=== PATIENT | female | born 1990 | race African-American/Black ===

== ENCOUNTER 2018-07-08 20:34 | Emergency (ER) | payer MEDICAID ==
[~2018-07-08] VITALS: Ht 167.6 cm; Wt 53.1 kg
[2018-07-08 21:00] VITALS: BP 109/65
--- NOTE | 2018-07-08 21:22 | Emergency Room Report ---
History of Present Illness General Chief Complaint: Skin Rash/Abscess Source: Patient Present Illness HPI Patient is a 28-year-old female presented after increased facial itching and swelling. Patient reports having increased rash to her chest face and extremities. This began several days ago. Patient had some improvement with Benadryl. She denies any difficulty breathing. Patient reported having some initial itchiness to her face. She stated she had recently used a mask which may have irritated her face. She denies any other recent exposures.She reports having eaten some shrimp initially prior to the rash. Allergies: Coded Allergies: No Known Allergies (Unverified , 07/08/18) Patient History Past Medical History: see triage record Last Menstrual Period: yesterday Now: No Reviewed Nursing Documentation: PMH: Agreed; PSxH: Agreed Nursing Documentation-PMH Past Medical History: No Stated History Review of Systems All Other Systems: negative except mentioned in HPI Physical Exam Vital Signs Date Time Temp Pulse Resp B/P (MAP) Pulse Ox O2 Delivery O2 Flow Rate FiO2 07/08/18 20:49 99.1 77 16 109/65 99 General Appearance: well appearing, no apparent distress, alert, GCS 15 Head: normocephalic, atraumatic ENT: hearing grossly normal, normal voice Neck: full range of motion, supple Respiratory: no respiratory distress, speaking full sentences Musculoskeletal: no calf tenderness Neurologic: normal inspection, alert, oriented x3, responsive, normal gait Psychiatric: mood/affect normal Skin: warm/dry, other - generalized urticarial rash Medical Decision Making Diagnostic Impression: Primary Impression: Allergic reaction ER Course Patient presented for skin rash. Differential diagnosis included was not limited to Curtis-Darien syndrome, urticaria, erythema multiforme, contact dermatitis. Patient's benign exam and does not appear to require any further imaging or laboratory testing at this time. The patient given prescription for prednisone as well as Benadryl. The patient does not appear to show any evidence of anaphylaxis. She is advised follow-up with her primary care physician for recheck. She is advised to avoid shrimp.The patient is advised to follow up with primary care doctor in 1-2 days. Patient is advised to return if any worsening condition or if any changes in status that are concerning. 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 Last Vital Signs Date Time Temp Pulse Resp B/P (MAP) Pulse Ox O2 Delivery O2 Flow Rate FiO2 07/08/18 20:49 99.1 77 16 109/65 99 Status: improved Disposition: HOME, SELF-CARE Condition: Stable Scripts Diphenhydramine Hcl* (BENADRYL*) 25 Mg Capsule 25 MG ORAL Q6H PRN for Itching, #30 CAP Prov: Mehran Siegel MD 07/08/18 Prednisone* (PREDNISONE*) 20 Mg Tablet 40 MG ORAL DAILY, #10 TAB Prov: Mehran Siegel MD 07/08/18 Mehran Siegel MD Jul 08, 2018 21:22
[2018-07-08] MEDS ORDERED: BENADRYL25 MG ORAL (21:23)
[2018-07-08] MEDS ORDERED: PREDNISONE20 MG ORAL (21:23)
[2018-07-08 21:45] VITALS: BP 109/65
== END 2018-07-08 21:40 | disposition home or self-care (01) ==
LOC: EMR 21:16
DX: R21 Rash and other nonspecific skin eruption (principal); T78.40XA Allergy, unspecified, initial encounter; X58.XXXA Exposure to other specified factors, initial encounter
CPT/HCPCS: 81025; 99283

== ENCOUNTER 2018-07-19 03:26 | Emergency (ER) | payer MEDICAID ==
[~2018-07-19] VITALS: Ht 167.6 cm; Wt 54.9 kg
[~2018-07-19 03:26] MED LIST: BENADRYL25 MG ORAL; PREDNISONE20 MG ORAL
[2018-07-19 03:37] VITALS: BP 106/73
[2018-07-19] MEDS ORDERED: PREDNISONE20 MG ORAL (03:47)
[2018-07-19] MEDS ORDERED: BENADRYL25 MG ORAL (03:47)
--- NOTE | 2018-07-19 03:48 | Emergency Room Report ---
History of Present Illness General Chief Complaint: Allergic Reaction Source: Patient Present Illness HPI Is a 28-year-old female with no past medical history. She does have an allergy to shellfish. She presents with chief complaint of itching for last 24 hours. This occurred after eating salmon. She does not know if there was shrimp in it. Patient denies any restaurant complaint. Itching. Worse with scratching. Better with Benadryl. Last Benadryl dose with 12 hours ago. No nausea no vomiting. No fever chills but denies any other complaint. Allergies: Uncoded Allergies: SHELLFISH (Allergy, Unknown, 07/19/18) Patient History Past Medical History: none, see triage record, old chart reviewed Past Surgical History: none Pertinent Family History: none Social History: Denies: smoking Last Menstrual Period: 06/28/18 Now: No : 1 Para: 0 Immunizations: other Reviewed Nursing Documentation: PMH: Agreed; PSxH: Agreed Nursing Documentation-PMH Past Medical History: No Stated History Review of Systems Eye: Denies: eye pain, blurred vision ENT: Denies: ear pain, nose congestion, throat swelling Respiratory: Denies: cough, shortness of breath Cardiovascular: Denies: chest pain, palpitations Gastrointestinal: Denies: abdominal pain, diarrhea, nausea, vomiting Musculoskeletal: Denies: back pain, joint pain Skin: Denies: rash Neurological: Denies: headache, numbness Endocrine: Denies: increased thirst, increased urine Hematologic/Lymphatic: Denies: easy bruising All Other Systems: negative except mentioned in HPI Physical Exam Vital Signs Date Time Temp Pulse Resp B/P (MAP) Pulse Ox O2 Delivery O2 Flow Rate FiO2 07/19/18 03:27 97.9 78 16 106/73 97 07/19/18 03:37 Room Air vitals normal Sp02 EP Interpretation: reviewed, normal General Appearance: well appearing, no apparent distress, alert Head: normocephalic, atraumatic Eyes: bilateral eye PERRL, bilateral eye EOMI ENT: hearing grossly normal, normal pharynx Neck: full range of motion, supple, no meningismus Respiratory: chest non-tender, lungs clear, normal breath sounds Cardiovascular #1: regular rate, rhythm, no murmur Gastrointestinal: normal bowel sounds, non tender, no mass, no organomegaly, no bruit, non-distended Musculoskeletal: back normal, gait/station normal, normal range of motion Psychiatric: mood/affect normal Skin: warm/dry Medical Decision Making Diagnostic Impression: Primary Impression: Allergic reaction Qualified Codes: T78.40XA - Allergy, unspecified, initial encounter ER Course Patient with allergic reaction. No evidence of rest or distress anaphylaxis. We'll discharge home with Benadryl and prednisone. Recommend outpatient testing for food allergy. Last Vital Signs Date Time Temp Pulse Resp B/P (MAP) Pulse Ox O2 Delivery O2 Flow Rate FiO2 07/19/18 03:37 78 16 Room Air 07/19/18 03:37 97.9 106/73 97 Status: improved Disposition: HOME, SELF-CARE Condition: Stable Scripts Prednisone* (PREDNISONE*) 20 Mg Tablet 40 MG ORAL DAILY, #8 TAB Prov: Ck Pulliam MD 07/19/18 Diphenhydramine Hcl* (BENADRYL*) 25 Mg Capsule 50 MG ORAL Q6H PRN for Itching, #30 CAP Prov: Ck Pulliam MD 07/19/18 Patient Instructions: Food Allergy Additional Instructions: Follow-up with your doctor in 7 days. Recommend outpatient testing for food allergy. Return if symptom worsen. Ck Pulliam MD Jul 19, 2018 03:48
[2018-07-19 03:58] VITALS: BP 106/73
== END 2018-07-19 04:09 | disposition home or self-care (01) ==
LOC: EMR 03:54
DX: T78.40XA Allergy, unspecified, initial encounter (principal); X58.XXXA Exposure to other specified factors, initial encounter; Z91.013 Allergy to seafood
CPT/HCPCS: 99283; J7512